=== PATIENT | male | born 1980 | race African-American/Black ===

== ENCOUNTER 2020-10-19 14:34 | Emergency (ER) | payer BC ==
[2020-10-19 15:03] VITALS: BMI 31.9
[2020-10-19] MEDS ORDERED: ACETAMINOPHEN 325 MG TABLET (FP) PO ONE (16:25)
[2020-10-19] MEDS ORDERED: FLUORESCEIN NA 1 EA STRIP OU ONE (16:45)
[2020-10-19 18:43] VITALS: BP 133/72; PULSE 85; TEMP 98.1
== END 2020-10-19 20:06 | disposition home or self-care (01) ==
LOC: JER 14:34
DX: G50.1 Atypical facial pain (principal); S02.2XXA Fracture of nasal bones, initial encounter for closed fracture; M10.9 Gout, unspecified
CPT/HCPCS: 70450-TC; 70486-TC; 72125-TC; 99284-25